=== PATIENT | female | born 1940 | race African-American/Black ===

== ENCOUNTER 2022-10-11 06:36 | Inpatient (IN) | payer MEDICARE ==
[~2022-10-11] VITALS: Ht 165.1 cm; Wt 63.5 kg
[2022-10-11] MEDS ORDERED: ONDANSETRON HCL 4MG/2ML INJ IV ONE (09:00)
[2022-10-11] MEDS ORDERED: MECLIZINE 25MG TABLET PO ONE (09:00)
[2022-10-11] MEDS ORDERED: SODIUM CHLORIDE 0.9% 1,000 ML IV ONE (09:00)
[2022-10-11 09:13] LABS: CHLORIDE 107 mEq/L (98-107)
[2022-10-11 09:19] LABS: BASOPHILS % 0.4 % (0.0-2.0); EOSINOPHILS % 1.6 % (0.0-5.0); HEMATOCRIT. 39.3 % (36.0-48.0); HEMOGLOBIN. 12.9 g/dL (12.0-16.0); LYMPHOCYTES % 18.8 % (20.0-50.0); MEAN CORPUSCULAR HEMOGLOBIN 29.3 pg (28.0-32.0); MEAN CORPUSCULAR VOLUME 89.1 fL (81.0-99.0); MONOCYTES % 5.4 % (2.0-8.0); NEUTROPHILS % 73.8 % (40.0-76.0); PLATELET 170 x1000/uL (130-400); RED BLOOD CELL COUNT 4.42 mill/uL (4.2-5.4); RED CELL DISTRIBUTION WIDTH 14.3 % (11.6-14.6)
[2022-10-11 10:18] LABS: CLARITY URINE CLOUDY (CLEAR); COLOR URINE YELLOW (YELLOW); KETONES URINE NEGATIVE (NEGATIVE); LEUKOCYTE ESTERASE URINE 2+ (NEGATIVE); NITRITE URINE NEGATIVE (NEGATIVE); OCCULT BLOOD URINE NEGATIVE (NEGATIVE); PH URINE 6.5 (4.5-8.0); PROTEIN URINE TRACE (NEGATIVE); SPECIFIC GRAVITY URINE 1.021 (1.005-1.030)
[2022-10-11 12:00] VITALS: BP 184/74
[2022-10-11] MEDS ORDERED: CEFTRIAXONE 1 G PREMIX 50 ML IV ONE (12:00)
[2022-10-11 13:37] LABS: T4 FREE 1.06 ng/dL (0.76-1.46)
[2022-10-11 14:25] VITALS: BP 184/74
[2022-10-11] MEDS: ENOXAPARIN 60MG/0.6ML SYR SUBCUT SCH (14:58)
[2022-10-11] MEDS: AMLODIPINE 2.5MG TABLET PO SCH (14:58)
[2022-10-11 16:00] VITALS: BP 139/58
[2022-10-11] MEDS ORDERED: ONDANSETRON HCL 4MG/2ML INJ IV PRN (19:45)
[2022-10-11] MEDS ORDERED: ACETAMINOPHEN 325MG TABLET PO PRN (19:45)
[2022-10-11 20:00] VITALS: BP 174/72
[2022-10-11] MEDS: HYDRALAZINE HCL 100MG TABLET PO SCH (20:30)
[2022-10-12] VITALS (7 sets, daily range): BP systolic 116–164; BP diastolic 61–83
[2022-10-12] MEDS: ENOXAPARIN 60MG/0.6ML SYR SUBCUT SCH ×2 (01:03→13:04)
[2022-10-12 06:33] LABS: BASOPHILS % 0.4 % (0.0-2.0); EOSINOPHILS % 1.7 % (0.0-5.0); HEMATOCRIT. 36.7 % (36.0-48.0); HEMOGLOBIN. 12.1 g/dL (12.0-16.0); MEAN CORPUSCULAR HEMOGLOBIN 29.2 pg (28.0-32.0); MEAN CORPUSCULAR VOLUME 88.7 fL (81.0-99.0); MEAN PLATELET VOLUME 10.5 fl (7.4-10.4); MONOCYTES % 6.6 % (2.0-8.0); NEUTROPHILS % 61.3 % (40.0-76.0); PLATELET 184 x1000/uL (130-400); RED BLOOD CELL COUNT 4.13 mill/uL (4.2-5.4); RED CELL DISTRIBUTION WIDTH 14.4 % (11.6-14.6)
[2022-10-12 06:46] LABS: CHLORIDE 106 mEq/L (98-107)
[2022-10-12] MEDS: HYDRALAZINE HCL 100MG TABLET PO SCH ×4 (08:54→17:00)
[2022-10-12] MEDS: AMLODIPINE 2.5MG TABLET PO SCH ×3 (08:55→21:13)
[2022-10-12] MEDS ORDERED: CLONIDINE 0.1MG TABLET PO PRN (11:30)
[2022-10-13] VITALS: BP 148/80
[2022-10-13] MEDS: ENOXAPARIN 60MG/0.6ML SYR SUBCUT SCH ×2 (01:07→13:21)
[2022-10-13 04:00] VITALS: BP 112/70
[2022-10-13 08:00] VITALS: BP 125/61
[2022-10-13 08:34] LABS: BASOPHILS % 0.4 % (0.0-2.0); EOSINOPHILS % 1.2 % (0.0-5.0); HEMOGLOBIN. 11.3 g/dL (12.0-16.0); LYMPHOCYTES % 22.8 % (20.0-50.0); MEAN CORPUSCULAR HEMOGLOBIN 29.1 pg (28.0-32.0); MEAN CORPUSCULAR VOLUME 87.9 fL (81.0-99.0); MEAN PLATELET VOLUME 10.5 fl (7.4-10.4); MONOCYTES % 8.8 % (2.0-8.0); NEUTROPHILS % 66.8 % (40.0-76.0); PLATELET 181 x1000/uL (130-400); RED BLOOD CELL COUNT 3.87 mill/uL (4.2-5.4); RED CELL DISTRIBUTION WIDTH 14.4 % (11.6-14.6)
[2022-10-13] MEDS: AMLODIPINE 2.5MG TABLET PO SCH (08:46)
[2022-10-13] MEDS: HYDRALAZINE HCL 100MG TABLET PO SCH ×3 (08:46→18:29)
[2022-10-13 09:24] LABS: CHLORIDE 106 mEq/L (98-107)
[2022-10-13 11:45] VITALS: BP_SYST 125; BP_SYST 136; BP_DIAS 55; BP_DIAS 59; BP_DIAS 62
[2022-10-13] MEDS: LOSARTAN POTASSIUM 25 MG TABLET PO SCH ×2 (13:20→21:53)
[2022-10-13 16:00] VITALS: BP 116/53
[2022-10-13 20:00] VITALS: BP 134/60
[2022-10-13] MEDS ORDERED: CEFTRIAXONE 1 G PREMIX 50 ML IV SCH (20:30)
[2022-10-13] MEDS ORDERED: CEFTRIAXONE 1,000 MG in DEXTROSE 5% WATER 50 ML IV SCH (21:30)
[2022-10-14] VITALS: BP 146/66
[2022-10-14] MEDS: ENOXAPARIN 60MG/0.6ML SYR SUBCUT SCH (03:00)
[2022-10-14 03:31] VITALS: BP 142/61
[2022-10-14 06:51] LABS: BASOPHILS % 0.4 % (0.0-2.0); EOSINOPHILS % 1.5 % (0.0-5.0); HEMATOCRIT. 33.6 % (36.0-48.0); HEMOGLOBIN. 11.3 g/dL (12.0-16.0); LYMPHOCYTES % 21.9 % (20.0-50.0); MEAN CORPUSCULAR HEMOGLOBIN 29.3 pg (28.0-32.0); MEAN CORPUSCULAR VOLUME 87.2 fL (81.0-99.0); MEAN PLATELET VOLUME 10.2 fl (7.4-10.4); MONOCYTES % 10.2 % (2.0-8.0); PLATELET 190 x1000/uL (130-400); RED BLOOD CELL COUNT 3.85 mill/uL (4.2-5.4); RED CELL DISTRIBUTION WIDTH 14.5 % (11.6-14.6)
[2022-10-14 08:00] VITALS: BP 156/69
[2022-10-14 08:45] LABS: CHLORIDE 108 mEq/L (98-107)
[2022-10-14] MEDS: HYDRALAZINE HCL 100MG TABLET PO SCH (09:09)
[2022-10-14] MEDS: LOSARTAN POTASSIUM 25 MG TABLET PO SCH (09:09)
[2022-10-14] MEDS ORDERED: HYDR100T26 MT (12:47)
[2022-10-14] MEDS ORDERED: LEVO-65 MT (12:47)
[2022-10-14] MEDS ORDERED: LOSA25TA3 PO (12:47)
[2022-10-14] MEDS ORDERED: APIX5TAB MT (12:47)
[2022-10-14 13:32] VITALS: BP 132/74
[2022-10-14] MEDS ORDERED: APIXABAN 5 MG TABLET PO SCH (17:00)
== END 2022-10-14 15:15 | disposition home or self-care (01) | DRG 74 ==
LOC: ER 07:01 → 8WST 11:40 → ENRESERV 11:58
PROVIDERS: ADMIT Internal Medicine; ATTEND Internal Medicine
DX: G90.8 Other disorders of autonomic nervous system (principal); N39.0 Urinary tract infection, site not specified; I42.9 Cardiomyopathy, unspecified; I48.19 Other persistent atrial fibrillation; I48.92 Unspecified atrial flutter; I16.0 Hypertensive urgency; Z20.822 Contact with and (suspected) exposure to COVID-19; I10 Essential (primary) hypertension; I44.30 Unspecified atrioventricular block; Z79.899 Other long term (current) drug therapy
CPT/HCPCS: 36415; 71046; 80048; 80053; 81003; 83735; 83880; 84439; 84443; 84481; 84484; 85025; 87426; 93005; 93306; 93880; 99291; J0696; J1650; J2405; J7030; J7060; J8597